=== PATIENT | female | born 1940 | race Caucasian/White ===

== ENCOUNTER 2025-01-26 23:58 | Observation (INO) ==
[2025-01-27] MEDS: APRESOLINE INJ 20 MG VIAL IVP ONE ×2 (00:35→01:48)
--- NOTE | 2025-01-27 00:37 | DR.HTN ---
HPI Time Seen Time Seen by Provider: 01/27/25 00:35 Primary Care Physician Primary Care Physician: DEV HPI Comment HPI Comment: History as below. Complaints Chief Complaint Doctors Comments: Patient is 84yr old female in ER complaining of elevated blood pressure and edema of bilateral leg and feet times. Patient said edema progressive for several days and blood pressure elevation started today. Patient denies SOB or chest pain. No fever or vomiting. Chief Complaint:: PT AMBULATORY IN ED WITH COMPLAINTS OF HIGH BLOOD PRESSURE, NO PAIN BLE NOTED TO HAVE 4+ PITTING EDEMA DENIES SOB OR HX OF CHF. Self Treatment fo Chief Complaint: LOSARTAN 25MG COVID-19 Coronavirus risk:travel/contact w/high risk person: No Has patient experienced Coronavirus symptoms: No Reviewed Nurses Notes Reviewed: Yes Source History Provided: Patient Mode of Arrival Mode of Arrival: Ambulatory Timing Onset of Chief Complaint: 01/27/25 PMH PMH Past Medical History: Yes Past Medical History: Arthritis, GERD, Gout and Hypertension Past Surgical History: Yes Surgical History: Other Past Surgical History Comment: CATARACTS Family History History of Family Medical Conditions: No Social History Do you use any recreational Drugs:: No Travel Risk Coronavirus risk:travel/contact w/high risk person: No Has patient experienced Coronavirus symptoms: No Infectious screening Have you traveled outside the country in the last 6 months?: No Isolation: Standard ROS Review of Systems Constitutional: No Symptoms Reported and See HPI; negative Fever Eyes: No Symptoms Reported and See HPI ENTM: No Symptoms Reported and See HPI Respiratoy: No Symptoms Reported, See HPI and Short of Breath (ON EXERTION.); negative Moist Cough Cardiovascular: See HPI and Edema (4 plus ); negative Chest Pain Gastrointestinal/Abdominal: No Symptoms Reported and See HPI; negative Abdominal Pain, Nausea or Vomiting Genitourinary: No Symptoms Reported; negative Dysuria Neurological: No Symptoms Reported and See HPI Musculoskeletal: No Symptoms Reported Integumentary: See HPI and Other (4 PLUS LEG AND FEET EDEMA, PITTING.) Hematologic/Lymphatic: No Symptoms Reported Endocrine: No Symptoms Reported Psychiatric: No Symptoms Reported All Other Systems: Reviewed and Negative PE Vital Signs Vitals: Vital Signs Temperature 98.0 F Pulse Rate 100 Pulse Rate 101 Pulse Rate 101 Pulse Rate 108 Pulse Rate 104 Pulse Rate 101 Pulse Rate 97 Pulse Rate 94 Pulse Rate 101 Pulse Rate 92 Pulse Rate 87 Pulse Rate 78 Pulse Rate 79 Pulse Rate 76 Pulse Rate 76 Respiratory Rate 15 Respiratory Rate 17 Respiratory Rate 17 Respiratory Rate 29 Respiratory Rate 23 Respiratory Rate 29 Respiratory Rate 22 Respiratory Rate 27 Respiratory Rate 23 Respiratory Rate 32 Respiratory Rate 19 Respiratory Rate 21 Respiratory Rate 23 Respiratory Rate 19 Respiratory Rate 20 Blood Pressure 185/77 Blood Pressure 188/86 Blood Pressure 188/86 Blood Pressure 179/80 Blood Pressure 179/80 Blood Pressure 168/78 Blood Pressure 168/78 Blood Pressure 174/82 Blood Pressure 174/82 Blood Pressure 174/82 Blood Pressure 174/82 Blood Pressure 174/82 Blood Pressure 173/81 Blood Pressure 184/86 Blood Pressure 184/84 Blood Pressure 191/86 Blood Pressure 216/102 Blood Pressure 238/100 Blood Pressure 242/111 O2 Sat by Pulse Oximetry 98 O2 Sat by Pulse Oximetry 99 O2 Sat by Pulse Oximetry 99 O2 Sat by Pulse Oximetry 100 O2 Sat by Pulse Oximetry 100 O2 Sat by Pulse Oximetry 100 O2 Sat by Pulse Oximetry 99 O2 Sat by Pulse Oximetry 99 O2 Sat by Pulse Oximetry 100 O2 Sat by Pulse Oximetry 99 O2 Sat by Pulse Oximetry 100 O2 Sat by Pulse Oximetry 99 O2 Sat by Pulse Oximetry 99 O2 Sat by Pulse Oximetry 99 O2 Sat by Pulse Oximetry 96 General Limitations: No Limitations General Appearance: Alert and In No Apparent Distress Head Head Exam: Normal Inspection and Atraumatic Eyes Eye exam: Normal Appearance ENT ENT Exam: Normal Exam, Normal Oropharynx, Normal External Ear Exam and TM's Normal Bilaterally Neck Neck Exam: Normal Inspection and Trachea Midline; negative Tenderness Respiratory Respiratory Exam: Normal Lung Sounds Bilat Respiratory Exam: Bilateral: Rhonchi Cardiovascular Cardiovascular Exam: Regular Rate, Normal Rhythm, Normal Heart Sounds and +S3; negative Systolic Murmur or Diastolic Murmur Abdominal Exam Abdominal Exam: Normal Inspection, Normal Bowel Sounds and Soft; negative Tenderness Extremities Extremities Exam: Normal Capillary Refill and Edema (PITTING, 4 PLUS AND BILATERAL.) Back Back Exam: Normal Inspection; negative (R) CVA Tenderness or (L) CVA Tenderness Neurologic Neurological Exam: Alert and Oriented X3; negative Motor Sensory Deficit Patient Oriented To: Person, Place and Time Psychiatric Psychiatric Exam: Normal Affect and Normal Mood Skin Skin Exam: Warm and Other (4 PLUS EDEMA LEGS AND FEET.) MDM Differential Diagnosis Differential Diagnosis: CHF (EDEMA, UTI, PNEUMONIA, ) and Hypertensive emergency COURSE Treatment Treatment: See orders done while patient was in ER. Patient given Hydralazine and Lasix IV. BP still high. Patient having good urine output. Patient is not feeling better. She will be admitted to hospital for further management. Consultation Consultation Comments: Discussed patient with Dr. Nur. He will admit patient. Education/Counseling Education/Counseling: Patient Educated On: Treatment and Diagnosis ROR Labs Reviewed Laboratory Results Reviewed?: Yes 01/27/25 05:28 01/27/25 05:28 Laboratory: WBC 8.5 X10^3/uL (3.6-10.0) 01/27/25 00:26 RBC 4.43 X10^6/uL (3.5-5.4) 01/27/25 00:26 Hgb 12.9 g/dL (12.0-16.0) 01/27/25 00: Hct 37.5 % (36.0-47.0) 01/27/25 00:26 MCV 84.7 fL (80.0-100.0) 01/27/25 00: MCH 29.2 pg (27.0-34.0) 01/27/25 00: MCHC 34.5 g/dL (33.0-35.0) 01/27/25 00:26 RDW 14.3 % (11.6-16.5) 01/27/25 00: Plt Count 254 X10^3/uL (150.0-450.0) 01/27/25 00:26 MPV 7.7 fL (7.4-11.0) 01/27/25 00: Neut % (Auto) 63.7 % (42.0-75.0) 01/27/25 00:26 Lymph % (Auto) 26.3 % (21.0-51.0) 01/27/25 00:26 Wheeler % (Auto) 7.0 % (0.0-13.0) 01/27/25 00: Eos % (Auto) 1.9 % (0.9-2.9) 01/27/25 00:26 Baso % (Auto) 1.1 % (0.2-1.0) H 01/27/25 00:26 Neut # (Auto) 5.4 x10^3/uL (2.2-4.8) H 01/27/25 00:26 Lymph # (Auto) 2.2 X10^3/uL (1.3-2.9) 01/27/25 00:26 Wheeler # (Auto) 0.6 x10^3/uL (0.3-0.8) 01/27/25 00:26 Eos # (Auto) 0.2 x10^3/uL (0.0-0.2) 01/27/25 00:26 Baso # (Auto) 0.1 X10^3/uL (0.0-0.1) 01/27/25 00:26 Absolute Nucleated RBC 0.2 /100WBC 01/27/25 00:26 Sodium 142 mmol/L (136-145) 01/27/25 00:26 Corrected Sodium 143 mmol/L (136-145) 01/27/25 00:26 Potassium 3.2 mmol/L (3.5-5.1) L 01/27/25 00: Chloride 103 mmol/L (98-107) 01/27/25 00: Carbon Dioxide 30.3 mmol/L (21-32) 01/27/25 00:26 BUN 15 mg/dL (7-18) 01/27/25 00:26 Creatinine 1.36 mg/dL (0.55-1.02) H 01/27/25 00:26 Est GFR (MDRD) Af Amer 48 (>60) L 01/27/25 00:26 Est GFR (MDRD) Non-Af 40 (>60) L 01/27/25 00:26 Glucose 130 mg/dL (65-99) H 01/27/25 00:26 Uric Acid 7.3 mg/dL (2.6-6.0) H 01/27/25 00:26 Calcium 9.0 mg/dL (8.5-10.1) 01/27/25 00:26 Corrected Calcium TNP 01/27/25 00:26 Total Bilirubin 0.40 mg/dL (0.2-1.0) 01/27/25 00:26 AST 16 Units/L (15-37) 01/27/25 00:26 ALT 13 Units/L (12-78) 01/27/25 00:26 Alkaline Phosphatase 80 Units/L (46-116) 01/27/25 00: Creatine Kinase 57 Units/L (26-192) 01/27/25 00:26 Troponin I High Sens 6.1 ng/L (4.0-60.0) 01/27/25 00:26 B-Natriuretic Peptide 146 pg/mL (0-79) H 01/27/25 00:26 Total Protein 9.3 g/dL (6.4-8.2) H 01/27/25 00:26 Albumin 4.1 g/dL (3.4-5.0) 01/27/25 00:26 Globulin 5.2 g/dL (2.5-4.5) H 01/27/25 00:26 Albumin/Globulin Ratio 0.8 Ratio (1.1-2.1) L 01/27/25 00:26 XRAY XRAY Interpreted by: Radiologist (Report noted.) and Self (RLL haziness, pneumonia VS edema or both.) EKG Rate: 95 [place]: Normal Rhythm: NSR Block: None Hypertrophy: None ST: Old and Infarct (inferior, age undetermined.) Opioid Opioid Risk Tool Age (Federico box if 16-45): No History of Preadolescent Sexual Abuse: No Total: 0 Total Score Risk Category: Low Risk Copyright: Norbert WHITFIELD predicting aberrant behaviors Discharge Plan Diagnosis Discharge Problem: Hypertelorism, Edema, CHF (congestive heart failure), Tachycardia, Respiratory infection, Pneumonia Discharge Plan Patient Disposition: ADMITTED INPATIENT Condition: Stable
--- NOTE | 2025-01-27 00:40 | EKG ---
Test Reason : ELEVATED BLOOD PRESSURE Blood Pressure : */* mmHG Vent. Rate : 87 BPM Atrial Rate : 87 BPM P-R Int : 204 ms QRS Dur : 70 ms QT Int : 372 ms P-R-T Axes : 44 65 19 degrees QTc Int : 447 ms Normal sinus rhythm Low voltage QRS Nonspecific ST and T wave abnormality Abnormal ECG When compared with ECG of 12-NOV-2024 19:52, No significant change was found Confirmed by George Mcgovern MD ([id number]) on 01/27/2025 7:17:06 AM Referred By: Confirmed By: George Mcgovern MD
[2025-01-27 00:48] LABS: MEAN PLATELET VOLUME 7.7 fL (7.4-11.0); RED CELL DISTRIBUTION WIDTH 14.3 % (11.6-16.5)
[2025-01-27 01:07] LABS: COR NA(FOR HYPERGLY) 143 mmol/L (136-145); CREATININE 1.36 mg/dL (0.55-1.02); eGFR NON BLACK RACES 40 (>60)
[2025-01-27] MEDS: K-DUR TAB 20 MEQ PO ONE ×2 (01:36→19:44)
[2025-01-27] MEDS: LASIX IVP ONE (01:36)
[2025-01-27] MEDS: KLOR-CON PO ONE (01:43)
[2025-01-27] MEDS: ROCEPHIN VIAL 1 GRAM IVP ONE (02:37)
--- NOTE | 2025-01-27 03:12 | EKG ---
Test Reason : WEAKNESS, FAINT FEELING Blood Pressure : */* mmHG Vent. Rate : 95 BPM Atrial Rate : 95 BPM P-R Int : 186 ms QRS Dur : 80 ms QT Int : 360 ms P-R-T Axes : 48 63 0 degrees QTc Int : 452 ms Normal sinus rhythm Possible Inferior infarct , age undetermined Abnormal ECG When compared with ECG of 27-JAN-2025 00:39, (Unconfirmed) No significant change was found Confirmed by George Mcgovern MD ([id number]) on 01/27/2025 7:16:57 AM Referred By: Confirmed By: George Mcgovern MD
[2025-01-27] MEDS: NS 500 ML IV 500 ML IV ONE ×2 (04:07→05:45)
[2025-01-27] MEDS: APRESOLINE INJ 20 MG VIAL IVP PRN (04:08)
[2025-01-27 04:27] VITALS: BMI 26.4
[2025-01-27] MEDS ORDERED: NS 500 ML IV 500 ML IV ONE (05:34)
[2025-01-27 05:40] LABS: MEAN PLATELET VOLUME 7.7 fL (7.4-11.0); RED CELL DISTRIBUTION WIDTH 14.2 % (11.6-16.5)
[2025-01-27 05:53] LABS: CHOL/HDL RATIO 3.3 (0.0-5.0); COR NA(FOR HYPERGLY) 143 mmol/L (136-145); CREATININE 1.40 mg/dL (0.55-1.02); eGFR NON BLACK RACES 38 (>60)
[2025-01-27] MEDS ORDERED: CONSULT PHARMACY - POTASSIUM & MAGNESIUM XX SCH (07:00)
--- NOTE | 2025-01-27 07:42 | RAD ---
EXAMINATION: CHEST, 1 VIEW HISTORY: GEOVANNI LEG SWELLING ; GERD, GOUT, HTN SX: CATARACTS . COMPARISON STUDY: None. TECHNIQUE: Single portable AP view of the chest FINDINGS: Lungs are expanded. Patchy alveolar infiltrates right lower lung field. Equivocal patchy infiltrate left pulmonary base. Mild cardiac silhouette enlargement. Normal pulmonary vascular pattern. Bones are intact IMPRESSION: Pulmonary infiltrates. Mild cardiac silhouette enlargement. THIS IS AN ELECTRONICALLY VERIFIED FINAL REPORT 01/27/2025 7:39 AM - Electronically signed by Hoda Santizo MD
[2025-01-27] MEDS: LASIX IVP SCH (08:21)
[2025-01-27] MEDS: ROCEPHIN VIAL 1 GRAM 1 G in NS 100 ML IV 100 ML IV SCH (08:22)
[2025-01-27] MEDS: K-DUR TAB 20 MEQ PO SCH (08:23)
--- NOTE | 2025-01-27 10:05 | DR.H&P ---
H&P History & Physical for Day of: H&P Date: 01/27/25 Chief Complaint Chief Complaint: elevated BP, leg swelling History of Present Illness History of Present Illness: Ms. Garcia is a 84-year-old female with a past medical history of arthritis, GERD and hypertension presented with elevated blood pressure, systolic in the 200 and worsening lower extremity edema. She denies any history of CAD or CHF. She states she monitors her blood pressure regularly and when she checked it yesterday she noticed it was high. She used different meters and checked it multiple times but it continued to stay high so she came to the ER she denied having any headache, dizziness or chest pain. Denies shortness of breath. She does have chronic lower extremity edema which has worsened a little bit. ER workup showed BNP 146 troponin negative, chest x- ray concerning for infiltrate. She was given IV Lasix and blood pressure medications. She was also started on IV Rocephin. She was admitted for further management. Earlier this morning she did have an episode where her blood pressure dropped into the 80s and heart rate was in the 30s. She was given normal saline bolus and felt better. Patient states she does not take blood pressure medicine daily at home, only takes it if her blood pressure is greater than 135/75. Labs/imaging reviewed: - WBC 13.5 hemoglobin 13.1 potassium 3.1 creatinine 1.40 glucose 185 BNP 146 - Chest x-ray reviewed Plan: Admit to [facility] with telemetry. Order echocardiogram to evaluate LV function. Replace electrolytes as per protocol. Monitor blood pressure and heart rate. Hold off on IV Lasix. Continue IV antibiotics and bronchodilators. Resume blood pressure medicine. Physical therapy as tolerated. Monitor a.m. labs and imaging. Past Medical History Past Medical History: Arthritis, GERD, Gout and Hypertension Past Surgical History Surgical History: Other Family History Family Medical History: SD Social History Alcohol Use: None Drug Use: None Medications Home Medications: Home Medications Medication Instructions Recorded Confirmed Type losartan 100 1 tab PO QDAY PRN 11/12/24 0 01/27/25 History mg-hydrochlorothiazide 25 mg tablet Allergies Allergies Allergy/AdvReac Type Severity Reaction Status Date / Time No Known Allergies Allergy Verified 01/27/25 00:19 Labs 01/27/25 05:28 01/27/25 05:28 Labs: Laboratory WBC 13.5 X10^3/uL (3.6-10.0) H 01/27/25 05:28 RBC 4.56 X10^6/uL (3.5-5.4) 01/27/25 05:28 Hgb 13.1 g/dL (12.0-16.0) 01/27/25 05:28 Hct 38.5 % (36.0-47.0) 01/27/25 05:28 MCV 84.5 fL (80.0-100.0) 01/27/25 05:28 MCH 28.8 pg (27.0-34.0) 01/27/25 05:28 MCHC 34.1 g/dL (33.0-35.0) 01/27/25 05:28 RDW 14.2 % (11.6-16.5) 01/27/25 05:28 Plt Count 314 X10^3/uL (150.0-450.0) 01/27/25 05:28 MPV 7.7 fL (7.4-11.0) 01/27/25 05:28 Neut % (Auto) 77.0 % (42.0-75.0) H 01/27/25 05:28 Lymph % (Auto) 16.3 % (21.0-51.0) L 01/27/25 05:28 Charles % (Auto) 5.7 % (0.0-13.0) 01/27/25 05:28 Eos % (Auto) 0.4 % (0.9-2.9) L 01/27/25 05:28 Baso % (Auto) 0.6 % (0.2-1.0) 01/27/25 05:28 Neut # (Auto) 10.4 x10^3/uL (2.2-4.8) H 01/27/25 05:28 Lymph # (Auto) 2.2 X10^3/uL (1.3-2.9) 01/27/25 05:28 Charles # (Auto) 0.8 x10^3/uL (0.3-0.8) 01/27/25 05:28 Eos # (Auto) 0.0 x10^3/uL (0.0-0.2) 01/27/25 05:28 Baso # (Auto) 0.1 X10^3/uL (0.0-0.1) 01/27/25 05:28 Absolute Nucleated RBC 0.1 /100WBC 01/27/25 05:28 Sodium 141 mmol/L (136-145) 01/27/25 05:28 Corrected Sodium 143 mmol/L (136-145) 01/27/25 05:28 Potassium 3.1 mmol/L (3.5-5.1) L 01/27/25 05:28 Chloride 104 mmol/L (98-107) 01/27/25 05:28 Carbon Dioxide 28.9 mmol/L (21-32) 01/27/25 05:28 BUN 14 mg/dL (7-18) 01/27/25 05:28 Creatinine 1.40 mg/dL (0.55-1.02) H 01/27/25 05:28 Est GFR (MDRD) Af Amer 46 (>60) L 01/27/25 05:28 Est GFR (MDRD) Non-Af 38 (>60) L 01/27/25 05:28 Glucose 185 mg/dL (65-99) H 01/27/25 05:28 POC Glucose (mg/dL) 164 mg/dL (65-99) H 01/27/25 05:18 Hemoglobin A1c 6.1 % 01/27/25 05:28 Uric Acid 7.3 mg/dL (2.6-6.0) H 01/27/25 00:26 Calcium 9.1 mg/dL (8.5-10.1) 01/27/25 05:28 Corrected Calcium TNP 01/27/25 05:28 Magnesium 2.1 mg/dL (2.0-2.9) 01/27/25 05:28 Total Bilirubin 0.30 mg/dL (0.2-1.0) 01/27/25 05:28 AST 14 Units/L (15-37) L 01/27/25 05:28 ALT 9 Units/L (12-78) L 01/27/25 05:28 Alkaline Phosphatase 76 Units/L (46-116) 01/27/25 05:28 Creatine Kinase 57 Units/L (26-192) 01/27/25 00:26 Troponin I High Sens 6.1 ng/L (4.0-60.0) 01/27/25 00:26 B-Natriuretic Peptide 146 pg/mL (0-79) H 01/27/25 00:26 Total Protein 9.2 g/dL (6.4-8.2) H 01/27/25 05:28 Albumin 4.0 g/dL (3.4-5.0) 01/27/25 05:28 Globulin 5.2 g/dL (2.5-4.5) H 01/27/25 05:28 Albumin/Globulin Ratio 0.8 Ratio (1.1-2.1) L 01/27/25 05:28 Triglycerides 85 mg/dL (0-150) 01/27/25 05:28 Cholesterol 217 mg/dL (0-200) H 01/27/25 05:28 LDL Cholesterol, Calc 134 mg/dL (0-100) H 01/27/25 05:28 HDL Cholesterol 66 mg/dL (40-60) H 01/27/25 05:28 Cholesterol/HDL Ratio 3.3 (0.0-5.0) 01/27/25 05:28 Review of Systems Constitutional: No Symptoms Reported Eyes: No Symptoms Reported ENT: No Symptoms Reported Respiratory: No Symptoms Reported Cardiovascular: Edema Gastrointestinal: No Symptoms Reported Genitourinary: No Symptoms Reported Musculoskeletal: No Symptoms Reported Skin: No Symptoms Reported Neurological: No Symptoms Reported Physical Exam Vital Signs: Vital Signs Temperature 97.5 F Temperature 97.6 F Pulse Rate [Right Radial] 77 Pulse Rate [Right Radial] 78 Pulse Rate [Right Radial] 80 Pulse Rate [Right Radial] 78 Pulse Rate [Right Radial] 83 Pulse Rate [Right Radial] 79 Pulse Rate [Right Radial] 91 Pulse Rate 91 Pulse Rate 91 Pulse Rate 94 Pulse Rate 105 Pulse Rate 100 Pulse Rate 101 Pulse Rate 101 Pulse Rate 108 Pulse Rate 104 Pulse Rate 101 Respiratory Rate 18 Respiratory Rate 20 Respiratory Rate 25 Respiratory Rate 16 Respiratory Rate 17 Respiratory Rate 15 Respiratory Rate 15 Respiratory Rate 17 Respiratory Rate 17 Respiratory Rate 29 Respiratory Rate 23 Respiratory Rate 29 Blood Pressure [Right Arm] 137/65 Blood Pressure [Right Arm] 143/65 Blood Pressure [Right Arm] 158/72 Blood Pressure [Right Arm] 163/72 Blood Pressure [Right Arm] 178/74 Blood Pressure [Right Arm] 187/88 Blood Pressure [Right Arm] 187/90 Blood Pressure 162/94 Blood Pressure 165/79 Blood Pressure 169/77 Blood Pressure 192/91 Blood Pressure 185/77 Blood Pressure 188/86 Blood Pressure 188/86 Blood Pressure 179/80 Blood Pressure 179/80 Blood Pressure 168/78 Blood Pressure 168/78 O2 Sat by Pulse Oximetry 98 O2 Sat by Pulse Oximetry 99 O2 Sat by Pulse Oximetry 99 O2 Sat by Pulse Oximetry 100 O2 Sat by Pulse Oximetry 98 O2 Sat by Pulse Oximetry 99 O2 Sat by Pulse Oximetry 99 O2 Sat by Pulse Oximetry 100 O2 Sat by Pulse Oximetry 100 O2 Sat by Pulse Oximetry 100 Oriented: Normal Respiratory: Clear Throughout Cardiovascular: Normal and Edema Auscultation: Bowel Sounds: Normal Palpation: Normal Tenderness: Normal Skin: Normal Musculoskeletal: Normal Psychiatric: Normal Mood Description: Calm Affect: Normal Speech Pattern: Clear and Appropriate Assessment/Plan (1) PNA (pneumonia): Qualifiers: Pneumonia type: due to unspecified organism Laterality: unspecified laterality Lung location: unspecified part of lung Qualified Code(s): J18.9 - Pneumonia, unspecified organism Status: Acute (2) Edema: Qualifiers: Edema type: unspecified Qualified Code(s): R60.9 - Edema, unspecified Status: Acute (3) Hypertension: Qualifiers: Hypertension type: primary hypertension Qualified Code(s): I10 - Essential (primary) hypertension Status: Chronic (4) CHF (congestive heart failure): Qualifiers: Heart failure type: unspecified Heart failure chronicity: unspecified Qualified Code(s): I50.9 - Heart failure, unspecified Status: Acute (5) Hypokalemia: Status: Acute Review H&P Reviewed: Yes Patient was examined?: Yes
[2025-01-27] MEDS: HYZAAR 50/12.5 MG PO SCH (11:34)
[2025-01-27] MEDS: LOVENOX INJ 40 MG SYR SC SCH (13:21)
[2025-01-27] MEDS: DUONEB 0.5 MG/3 MG (3 mL) NEB SCH (14:00)
[2025-01-27] MEDS: LASIX ONE (19:44)
[2025-01-27] MEDS: ROCEPHIN VIAL 1 GRAM ONE (19:44)
[2025-01-27] MEDS: KLOR-CON ONE (19:44)
[2025-01-27] MEDS: PHARMACY CONSULT XX SCH (19:44)
[2025-01-27] MEDS: APRESOLINE INJ 20 MG VIAL ONE (19:44)
[2025-01-27] MEDS: PULMICORT NEB TX 0.5 MG NEB SCH (20:22)
[2025-01-28 03:49] VITALS: TEMP 97.8
--- NOTE | 2025-01-28 05:24 | RAD ---
EXAM: CHEST, 1 VIEW HISTORY: PNEUMONIA ; ARTHRITIS, GERD, GOUT, HTN SX: CATARACTS COMPARISON: 01/27/2025 FINDINGS: T he trachea is midline. The cardiac silhouette is unremarkable . The lungs are clear without focal infiltrate or effusion. The bony thorax is unremarkable. IMPRESSION: No acute cardiopulmonary disease. THIS IS AN ELECTRONICALLY VERIFIED FINAL REPORT 01/28/2025 5:20 AM - Electronically signed by Umberto Morrison MD
[2025-01-28 05:45] LABS: MEAN PLATELET VOLUME 7.7 fL (7.4-11.0); RED CELL DISTRIBUTION WIDTH 14.5 % (11.6-16.5)
[2025-01-28 05:57] LABS: COR CA(FOR HYPOALB) 9.0 mg/dL (8.5-10.1); COR NA(FOR HYPERGLY) 142.0 mmol/L (136-145); CREATININE 1.26 mg/dL (0.55-1.02); eGFR NON BLACK RACES 43.0 (>60)
[2025-01-28] MEDS ORDERED: CONSULT PHARMACY - POTASSIUM & MAGNESIUM XX SCH (07:00)
[2025-01-28 07:37] VITALS: BP 138/65; RESP 20
[2025-01-28] MEDS: K-DUR TAB 20 MEQ PO SCH (08:29)
[2025-01-28 09:10] VITALS: PULSE 73; O2SAT 97
--- NOTE | 2025-01-29 15:35 | W.DIS.FURT ---
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 Garcia is a 84-year-old female with a past medical history of arthritis, GERD and hypertension presented with elevated blood pressure, systolic in the 200 and worsening lower extremity edema. She denies any history of CAD or CHF. She states she monitors her blood pressure regularly and when she checked it yesterday she noticed it was high. She used different meters and checked it multiple times but it continued to stay high so she came to the ER she denied having any headache, dizziness or chest pain. Denies shortness of breath. She does have chronic lower extremity edema which has worsened a little bit. ER workup showed BNP 146 troponin negative, chest x-ray concerning for infiltrate. She was given IV Lasix and blood pressure medications. She was also started on IV Rocephin. She was admitted for further management. Labs were monitored daily and electrolytes replaced as needed. Earlier in morning she did have an episode where her blood pressure dropped into the 80s and heart rate was in the 30s. She was given normal saline bolus and felt better. Patient states she does not take blood pressure medicine daily at home, only takes it if her blood pressure is greater than 135/75. Echocardiogram was done, see scanned report. She was restarted on her blood pressure medication. She was feeling better and ambulating in the room. Her lower extremity edema had improved. Repeat chest x-ray did not show any infection or effusion. She was stable to be discharged home. She will follow-up with PCP as scheduled. Advised to monitor blood pressure and take blood pressure medicine daily. Vital Signs: Vital Signs (72 hours) 01/27/25 00:04 01/27/25 00:26 01/27/25 00:27 Temperature 98.0 F Pulse Rate 76 76 Pulse Rate [Right Radial] Respiratory Rate 20 19 Blood Pressure 242/111 238/100 Blood Pressure [Right Arm] O2 Sat by Pulse Oximetry 96 99 Oxygen Delivery Method FIO2% 01/27/25 00:27 01/27/25 00:30 01/27/25 00:30 Temperature Pulse Rate 79 78 Pulse Rate [Right Radial] Respiratory Rate 23 21 Blood Pressure 216/102 Blood Pressure [Right Arm] O2 Sat by Pulse Oximetry 99 99 Oxygen Delivery Method FIO2% 01/27/25 00:45 01/27/25 00:45 01/27/25 01:00 Temperature Pulse Rate 87 Pulse Rate [Right Radial] Respiratory Rate 19 Blood Pressure 191/86 184/84 Blood Pressure [Right Arm] O2 Sat by Pulse Oximetry 100 Oxygen Delivery Method FIO2% 01/27/25 01:00 01/27/25 01:15 01/27/25 01:15 Temperature Pulse Rate 92 H 101 H Pulse Rate [Right Radial] Respiratory Rate 32 H 23 Blood Pressure 184/86 Blood Pressure [Right Arm] O2 Sat by Pulse Oximetry 99 100 Oxygen Delivery Method FIO2% 01/27/25 01:30 01/27/25 01:30 01/27/25 01:45 Temperature Pulse Rate 94 H 97 H Pulse Rate [Right Radial] Respiratory Rate 27 H 22 Blood Pressure 173/81 Blood Pressure [Right Arm] O2 Sat by Pulse Oximetry 99 99 Oxygen Delivery Method FIO2% 01/27/25 01:45 01/27/25 01:45 01/27/25 01:45 Temperature Pulse Rate Pulse Rate [Right Radial] Respiratory Rate Blood Pressure 174/82 174/82 174/82 Blood Pressure [Right Arm] O2 Sat by Pulse Oximetry Oxygen Delivery Method FIO2% 01/27/25 01:45 01/27/25 01:45 01/27/25 02:00 Temperature Pulse Rate Pulse Rate [Right Radial] Respiratory Rate Blood Pressure 174/82 174/82 168/78 Blood Pressure [Right Arm] O2 Sat by Pulse Oximetry Oxygen Delivery Method FIO2% 01/27/25 02:00 01/27/25 02:00 01/27/25 02:15 Temperature Pulse Rate 101 H Pulse Rate [Right Radial] Respiratory Rate 29 H Blood Pressure 168/78 179/80 Blood Pressure [Right Arm] O2 Sat by Pulse Oximetry 100 Oxygen Delivery Method FIO2% 01/27/25 02:15 01/27/25 02:15 01/27/25 02:16 Temperature Pulse Rate 104 H 108 H Pulse Rate [Right Radial] Respiratory Rate 23 29 H Blood Pressure 179/80 Blood Pressure [Right Arm] O2 Sat by Pulse Oximetry 100 100 Oxygen Delivery Method FIO2% 01/27/25 02:22 01/27/25 02:22 01/27/25 02:23 Temperature Pulse Rate 101 H Pulse Rate [Right Radial] Respiratory Rate 17 Blood Pressure 188/86 188/86 Blood Pressure [Right Arm] O2 Sat by Pulse Oximetry 99 Oxygen Delivery Method FIO2% 01/27/25 02:29 01/27/25 02:30 01/27/25 02:32 Temperature Pulse Rate 101 H 100 H Pulse Rate [Right Radial] Respiratory Rate 17 15 Blood Pressure 185/77 Blood Pressure [Right Arm] O2 Sat by Pulse Oximetry 99 98 Oxygen Delivery Method FIO2% 01/27/25 02:45 01/27/25 02:45 01/27/25 03:00 Temperature Pulse Rate 105 H Pulse Rate [Right Radial] Respiratory Rate 15 Blood Pressure 192/91 169/77 Blood Pressure [Right Arm] O2 Sat by Pulse Oximetry 100 Oxygen Delivery Method FIO2% 01/27/25 03:00 01/27/25 03:15 01/27/25 03:15 Temperature Pulse Rate 94 H 91 H Pulse Rate [Right Radial] Respiratory Rate 17 16 Blood Pressure 165/79 Blood Pressure [Right Arm] O2 Sat by Pulse Oximetry 99 Oxygen Delivery Method FIO2% 01/27/25 03:30 01/27/25 03:30 01/27/25 04:00 Temperature Pulse Rate 91 H Pulse Rate [Right Radial] Respiratory Rate 25 H Blood Pressure 162/94 Blood Pressure [Right Arm] O2 Sat by Pulse Oximetry Oxygen Delivery Method Room Air FIO2% 01/27/25 04:00 01/27/25 04:00 01/27/25 04:15 Temperature 97.6 F Pulse Rate Pulse Rate [Right Radial] 91 H 79 83 Respiratory Rate 20 Blood Pressure Blood Pressure [Right Arm] 187/90 187/88 178/74 O2 Sat by Pulse Oximetry 99 Oxygen Delivery Method Room Air FIO2% 01/27/25 04:30 01/27/25 04:45 01/27/25 05:00 Temperature Pulse Rate Pulse Rate [Right Radial] 78 80 78 Respiratory Rate Blood Pressure Blood Pressure [Right Arm] 163/72 158/72 143/65 O2 Sat by Pulse Oximetry Oxygen Delivery Method FIO2% 01/27/25 07:00 01/27/25 07:58 01/27/25 08:31 Temperature 97.5 F L Pulse Rate Pulse Rate [Right Radial] 77 Respiratory Rate 18 Blood Pressure Blood Pressure [Right Arm] 137/65 O2 Sat by Pulse Oximetry 98 Oxygen Delivery Method Room Air Room Air FIO2% 01/27/25 12:00 01/27/25 13:00 01/27/25 15:31 Temperature 97.6 F 99.2 F Pulse Rate Pulse Rate [Right Radial] 74 74 Respiratory Rate 18 18 Blood Pressure Blood Pressure [Right Arm] 164/75 142/66 126/58 O2 Sat by Pulse Oximetry 99 96 Oxygen Delivery Method FIO2% 01/27/25 19:00 01/27/25 20:00 01/27/25 20:20 Temperature 98.2 F Pulse Rate Pulse Rate [Right Radial] 64 Respiratory Rate 18 Blood Pressure Blood Pressure [Right Arm] 168/75 O2 Sat by Pulse Oximetry 97 Oxygen Delivery Method Room Air Room Air FIO2% 21 01/27/25 20:20 01/27/25 21:03 01/27/25 23:54 Temperature 98.4 F Pulse Rate 79 Pulse Rate [Right Radial] 84 Respiratory Rate 18 Blood Pressure Blood Pressure [Right Arm] 142/65 136/66 O2 Sat by Pulse Oximetry 98 96 Oxygen Delivery Method FIO2% 01/28/25 03:48 01/28/25 06:15 01/28/25 06:57 Temperature 97.8 F Pulse Rate 87 Pulse Rate [Right Radial] 65 Respiratory Rate 18 Blood Pressure Blood Pressure [Right Arm] 137/63 O2 Sat by Pulse Oximetry 96 98 Oxygen Delivery Method Room Air FIO2% 01/28/25 07:36 01/28/25 08:51 01/28/25 08:51 Temperature 97.8 F Pulse Rate 73 Pulse Rate [Right Radial] 68 Respiratory Rate 20 Blood Pressure Blood Pressure [Right Arm] 138/65 O2 Sat by Pulse Oximetry 96 97 Oxygen Delivery Method Room Air FIO2% Labs: Laboratory Last Values WBC 8.7 X10^3/uL (3.6-10.0) 01/28/25 05:08 RBC 4.13 X10^6/uL (3.5-5.4) 01/28/25 05:08 Hgb 12.1 g/dL (12.0-16.0) 01/28/25 05:08 Hct 35.0 % (36.0-47.0) L 01/28/25 05:08 MCV 84.9 fL (80.0-100.0) 01/28/25 05:08 MCH 29.3 pg (27.0-34.0) 01/28/25 05:08 MCHC 34.5 g/dL (33.0-35.0) 01/28/25 05:08 RDW 14.5 % (11.6-16.5) 01/28/25 05:08 Plt Count 243 X10^3/uL (150.0-450.0) 01/28/25 05:08 MPV 7.7 fL (7.4-11.0) 01/28/25 05:08 Neut % (Auto) 69.5 % (42.0-75.0) 01/28/25 05:08 Lymph % (Auto) 21.3 % (21.0-51.0) 01/28/25 05:08 [place] % (Auto) 6.2 % (0.0-13.0) 01/28/25 05:08 Eos % (Auto) 1.6 % (0.9-2.9) 01/28/25 05:08 Baso % (Auto) 1.4 % (0.2-1.0) H 01/28/25 05:08 Neut # (Auto) 6.0 x10^3/uL (2.2-4.8) H 01/28/25 05:08 Lymph # (Auto) 1.8 X10^3/uL (1.3-2.9) 01/28/25 05:08 [place] # (Auto) 0.5 x10^3/uL (0.3-0.8) 01/28/25 05:08 Eos # (Auto) 0.1 x10^3/uL (0.0-0.2) 01/28/25 05:08 Baso # (Auto) 0.1 X10^3/uL (0.0-0.1) 01/28/25 05:08 Absolute Nucleated RBC 0.0 /100WBC 01/28/25 05:08 Sodium 142 mmol/L (136-145) 01/28/25 05:08 Corrected Sodium 142 mmol/L (136-145) 01/28/25 05:08 Potassium 3.3 mmol/L (3.5-5.1) L 01/28/25 05:08 Chloride 102 mmol/L (98-107) 01/28/25 05:08 Carbon Dioxide 30.8 mmol/L (21-32) 01/28/25 05:08 BUN 13 mg/dL (7-18) 01/28/25 05:08 Creatinine 1.26 mg/dL (0.55-1.02) H 01/28/25 05:08 Est GFR (MDRD) Af Amer 52 (>60) L 01/28/25 05:08 Est GFR (MDRD) Non-Af 43 (>60) L 01/28/25 05:08 Glucose 113 mg/dL (65-99) H 01/28/25 05:08 POC Glucose (mg/dL) 164 mg/dL (65-99) H 01/27/25 05:18 Hemoglobin A1c 6.1 % 01/27/25 05:28 Uric Acid 7.3 mg/dL (2.6-6.0) H 01/27/25 00:26 Calcium 8.4 mg/dL (8.5-10.1) L 01/28/25 05:08 Corrected Calcium 9.0 mg/dL (8.5-10.1) 01/28/25 05:08 Magnesium 2.1 mg/dL (2.0-2.9) 01/27/25 05:28 Total Bilirubin 0.60 mg/dL (0.2-1.0) 01/28/25 05:08 AST 18 Units/L (15-37) 01/28/25 05:08 ALT 13 Units/L (12-78) 01/28/25 05:08 Alkaline Phosphatase 67 Units/L (46-116) 01/28/25 05:08 Creatine Kinase 57 Units/L (26-192) 01/27/25 00:26 Troponin I High Sens 6.1 ng/L (4.0-60.0) 01/27/25 00:26 B-Natriuretic Peptide 146 pg/mL (0-79) H 01/27/25 00:26 Total Protein 7.8 g/dL (6.4-8.2) 01/28/25 05:08 Albumin 3.2 g/dL (3.4-5.0) L 01/28/25 05:08 Globulin 4.6 g/dL (2.5-4.5) H 01/28/25 05:08 Albumin/Globulin Ratio 0.7 Ratio (1.1-2.1) L 01/28/25 05:08 Triglycerides 85 mg/dL (0-150) 01/27/25 05:28 Cholesterol 217 mg/dL (0-200) H 01/27/25 05:28 LDL Cholesterol, Calc 134 mg/dL (0-100) H 01/27/25 05:28 HDL Cholesterol 66 mg/dL (40-60) H 01/27/25 05:28 Cholesterol/HDL Ratio 3.3 (0.0-5.0) 01/27/25 05:28 Reason For Visit: HYPERTENSION, EDEMA, CHF, RESPIRATORY DISEASE Discharge Diagnosis All Active Problems (Updated 01/28/25 @ 02:27 by GEORGES LEAL) Pneumonia (Acute) Hypokalemia (Acute) PNA (pneumonia) (Acute) Respiratory infection (Acute) Tachycardia (Acute) CHF (congestive heart failure) (Acute) Edema (Acute) Hypertelorism (Acute) Hypertension (Chronic) Effusion, left knee (Acute) Effusion, left knee (Acute) Plan of Treatment: Continue with present treatment and follow up plan. Pt is to keep follow up appointment as instructed and take medications as ordered. Discharge Medications Discharge Medications: No Known Allergies Allergy (Verified 01/27/25 00:19) Discharge Disposition Discharge Disposition: home Discharge Condition: stable Discharge Plan Discharge Plan Hospital Course: Ms. Garica is a 84-year-old female with a past medical history of arthritis, GERD and hypertension presented with elevated blood pressure, systolic in the 200 and worsening lower extremity edema. She denies any history of CAD or CHF. She states she monitors her blood pressure regularly and when she checked it yesterday she noticed it was high. She used different meters and checked it multiple times but it continued to stay high so she came to the ER she denied having any headache, dizziness or chest pain. Denies shortness of breath. She does have chronic lower extremity edema which has worsened a little bit. ER workup showed BNP 146 troponin negative, chest x-ray concerning for infiltrate. She was given IV Lasix and blood pressure medications. She was also started on IV Rocephin. She was admitted for further management. Labs were monitored daily and electrolytes replaced as needed. Earlier in morning she did have an episode where her blood pressure dropped into the 80s and heart rate was in the 30s. She was given normal saline bolus and felt better. Patient states she does not take blood pressure medicine daily at home, only takes it if her blood pressure is greater than 135/75. Echocardiogram was done, see scanned report. She was restarted on her blood pressure medication. She was feeling better and ambulating in the room. Her lower extremity edema had improved. Repeat chest x-ray did not show any infection or effusion. She was stable to be discharged home. She will follow-up with PCP as scheduled. Advised to monitor blood pressure and take blood pressure medicine daily. Patient Disposition: HOME, SELF-CARE Condition: Stable Health Concerns: Post Hospitalization: new medications and changes needed to prevent readmission or further decline. Pt educated and given instructions on all concerns. Care Plan Goals: Problem: Respiratory Complications Goal: Improved Uncomplicated Respiratory Status Instructions: Follow provided instructions. Follow up with primary physician as directed. Contact primary care physician or report to the closest Emergency Room if condition worsens. Plan of Treatment: Continue with present treatment and follow up plan. Pt is to keep follow up appointment as instructed and take medications as ordered. Prescription drug monitoring program results: PDMP reviewed and no concerns identified Prescriptions: Continued losartan-hydrochlorothiazide 100-25 mg Tablet 1 tab PO QDAY PRN Orders to Discharge Patient Discharge Orders: Discharge (Routine); Ordered 01/28/25 Ordered By: Aletha Anne Follow ups/Referrals Follow ups/Referrals: Wilber Nur MD [STAFF PHYSICIAN, MEDICAL] - 02/04/25 4:20 pm Instructions Instructions: Hypokalemia, Hypertension, Adult, [id number], Heart Failure: How to Manage, Community-Acquired Pneumonia, Adult, Swas-ob-[place]rs[place] Activity Restrictions/Additional Instructions: needs repeat BMP at PCP appointment Stand Alone Forms: Find Help Web Site, Post Hospital Follow Up Care Print Language: GEORGIAN
== END 2025-01-28 10:35 | disposition home or self-care (01) ==
LOC: MED/SURG 23:58 → ER 23:58 → MED/SURG 01-27 03:43
PROVIDERS: ADMIT Family Medicine; ATTEND Family Medicine
DX: E87.6 Hypokalemia; R06.02 Shortness of breath; R60.0 Localized edema; K21.9 Gastro-esophageal reflux disease without esophagitis; I11.0 Hypertensive heart disease with heart failure; R00.0 Tachycardia, unspecified; R42 Dizziness and giddiness; M19.90 Unspecified osteoarthritis, unspecified site; E11.65 Type 2 diabetes mellitus with hyperglycemia; R53.1 Weakness; R94.31 Abnormal electrocardiogram [ECG] [EKG]; I50.9 Heart failure, unspecified; J18.8 Other pneumonia, unspecified organism